=== PATIENT | male | born 1960 | race Caucasian/White ===

== ENCOUNTER 2022-02-12 14:31 | Emergency (ER) | payer SELFPAY ==
[~2022-02-12] VITALS: Ht 185.4 cm; Wt 79.1 kg
[2022-02-12 14:32] VITALS: BP 121/70
== END 2022-02-12 17:59 | disposition left against medical advice (07) ==
LOC: M ED 14:31
DX: Z53.29 Procedure and treatment not carried out because of patient's decision for other reasons (principal)

== ENCOUNTER 2022-03-08 11:31 | Emergency (ER) | payer OTHER, SELFPAY ==
[~2022-03-08] VITALS: Ht 185.4 cm; Wt 80.5 kg
[2022-03-08] MEDS ORDERED: PROVEX CV (11:37)
[2022-03-08] MEDS ORDERED: LUMINEX (11:37)
[2022-03-08] MEDS ORDERED: PERCOCET 5MG/325MG TAB PO ONE (13:05)
[2022-03-08 15:43] LABS: HEMATOCRIT 34.6 % (42.0-52.0); HEMOGLOBIN 11.7 g/dl (13.5-17.5); MEAN CORPUSCULAR HEMOGLOBIN 31.3 pg (27.0-33.0); MEAN CORPUSCULAR HGB CONC 33.8 g/dl (32.0-36.5); MEAN CORPUSCULAR VOLUME 92.5 fl (80.0-96.0); PLATELET COUNT, AUTOMATED 348 10^3/uL (150-450); RED BLOOD COUNT 3.74 10^6/uL (4.30-6.10); WHITE BLOOD COUNT 4.7 10^3/uL (4.0-10.0)
[2022-03-08 15:54] LABS: INR 0.92; PROTHROMBIN TIME 12.8 SECONDS (12.7-14.5)
[2022-03-08 17:37] VITALS: BP 98/69
== END 2022-03-08 17:52 | disposition home or self-care (01) ==
LOC: M ED 11:31
DX: R18.8 Other ascites (principal); K74.60 Unspecified cirrhosis of liver; K22.70 Barrett's esophagus without dysplasia; Z87.891 Personal history of nicotine dependence

== ENCOUNTER 2022-03-21 14:49 | Emergency (ER) | payer OTHER ==
[~2022-03-21] VITALS: Ht 185.4 cm; Wt 91.5 kg
[~2022-03-21 14:49] MED LIST: LUMINEX; PROVEX CV
[2022-03-21 14:50] VITALS: BP 106/72
== END 2022-03-21 17:36 | disposition left against medical advice (07) ==
LOC: M ED 14:49
DX: R14.0 Abdominal distension (gaseous) (principal); Z53.20 Procedure and treatment not carried out because of patient's decision for unspecified reasons; R18.8 Other ascites; K22.70 Barrett's esophagus without dysplasia; K74.60 Unspecified cirrhosis of liver

== ENCOUNTER 2022-03-22 10:05 | Emergency (ER) | payer OTHER ==
[~2022-03-22] VITALS: Ht 182.9 cm; Wt 91.8 kg
[2022-03-22 11:31] LABS: HEMATOCRIT 30.8 % (42.0-52.0); HEMOGLOBIN 10.4 g/dl (13.5-17.5); MEAN CORPUSCULAR HEMOGLOBIN 30.8 pg (27.0-33.0); MEAN CORPUSCULAR HGB CONC 33.8 g/dl (32.0-36.5); MEAN CORPUSCULAR VOLUME 91.1 fl (80.0-96.0); PLATELET COUNT, AUTOMATED 312 10^3/uL (150-450); RED BLOOD COUNT 3.38 10^6/uL (4.30-6.10); WHITE BLOOD COUNT 5.8 10^3/uL (4.0-10.0)
[2022-03-22 11:44] LABS: INR 0.99; PROTHROMBIN TIME 13.3 SECONDS (12.5-14.5)
[2022-03-22 16:42] VITALS: BP 104/70
== END 2022-03-22 16:44 | disposition home or self-care (01) ==
LOC: M ED 10:05
DX: R18.8 Other ascites (principal); K76.89 Other specified diseases of liver; Z86.19 Personal history of other infectious and parasitic diseases; Z86.718 Personal history of other venous thrombosis and embolism; Z86.711 Personal history of pulmonary embolism; K22.70 Barrett's esophagus without dysplasia

== ENCOUNTER → 2022-03-29 | Outpatient (CLI) | payer OTHER ==
[2022-03-29 14:47] VITALS: BP 109/65
== END ==
LOC: M IRPRO 13:31
PROVIDERS: ATTEND Physician Assistant Medical
DX: R18.8 Other ascites (principal)

== ENCOUNTER → 2022-04-05 | Outpatient (CLI) | payer OTHER ==
[2022-04-05 14:20] VITALS: BP 109/68
== END ==
LOC: M IRPRO 13:14
PROVIDERS: ATTEND Physician Assistant Medical
DX: R18.8 Other ascites (principal)

== ENCOUNTER → 2022-04-12 | Outpatient (CLI) | payer OTHER ==
[~2022-04-12] MED LIST changes: +LIDOCAINE 1% MDV 20ML VIAL As Ordered ONE
[2022-04-12 14:27] VITALS: BP 125/77
== END ==
LOC: M IRPRO 13:11
PROVIDERS: ATTEND Physician Assistant Medical
DX: R18.8 Other ascites (principal)

== ENCOUNTER → 2022-04-19 | Outpatient (CLI) | payer OTHER ==
[~2022-04-19] MED LIST changes: -LIDOCAINE 1% MDV 20ML VIAL As Ordered ONE
[2022-04-19 13:40] VITALS: BP 111/62
== END ==
LOC: M IRPRO 13:21
PROVIDERS: ATTEND Nurse Practitioner Family
DX: R18.8 Other ascites (principal)